=== PATIENT | male | born 1960 | race Hispanic/Latino ===

== ENCOUNTER 2022-02-02 11:23 | Outpatient (CLI) | payer BC ==
[~2022-02-02 11:23] MED LIST: Gadobenate Dimeglumine 529 MG/1 ML (20ML VIAL) ONE
== END 2022-02-02 11:24 | disposition home or self-care (01) ==
LOC: BICMRI 11:23
PROVIDERS: ATTEND Family Medicine
DX: M50.10 Cervical disc disorder with radiculopathy, unspecified cervical region (principal)
CPT/HCPCS: 72156; 82565; A9577

== ENCOUNTER 2022-06-30 12:12 | Outpatient (CLI) | payer OTHER ==
[~2022-06-30 12:12] MED LIST changes: -Gadobenate Dimeglumine 529 MG/1 ML (20ML VIAL) ONE; +Iopamidol 370 76% 100 ML VIAL ONE
== END 2022-06-30 12:13 | disposition home or self-care (01) ==
LOC: CT 12:12
PROVIDERS: ATTEND Family Medicine
DX: R04.2 Hemoptysis (principal); R05.9 Cough, unspecified
CPT/HCPCS: 71260; 82565; Q9967

== ENCOUNTER 2022-07-15 11:59 | Outpatient (CLI) | payer OTHER | END 2022-07-15 12:00 | disposition home or self-care (01) | LOC: CT 11:59 | PROVIDERS: ATTEND Physician Assistant | DX: K86.9 Disease of pancreas, unspecified (principal); K76.0 Fatty (change of) liver, not elsewhere classified; I81 Portal vein thrombosis | CPT/HCPCS: 74178; 82565; Q9967 ==

== ENCOUNTER 2022-10-10 04:16 | Emergency (ER) | payer BC, OTHER ==
[2022-10-10] MEDS ORDERED: Orphenadrine Citrate 60 MG/2 ML VIAL ONE (05:20)
== END 2022-10-10 06:23 | disposition home or self-care (01) ==
LOC: ERS 04:16
DX: M54.41 Lumbago with sciatica, right side (principal); I10 Essential (primary) hypertension
CPT/HCPCS: 96372; 99283; J2360

== ENCOUNTER 2024-06-13 13:22 | Inpatient (IN) | payer BC, SELFPAY ==
[~2024-06-13 13:22] MED LIST changes: -Iopamidol 370 76% 100 ML VIAL ONE; +Iopamidol-370 76% 500 ML MDV (1 ML CHARGE) ONE
[2024-06-13 14:19] LABS: #Basophils 0.05 10x3/uL (0.0-0.2); %Basophils 0.4 % (0.0-1.0); %Eosinophils 1.4 % (0.0-10.0); %Lymphocytes 14.1 % (21.0-51.0); %Monocytes 12.4 % (0.0-10.0); %Neutrophils 71.3 % (42.0-75.0); Hematocrit 45.8 % (42.0-52.0); Hemoglobin 15.4 g/dL (14.0-18.0); Mean Corpuscular HGB CONC 33.6 g/dL (32.0-36.0); Mean Corpuscular Volume 95.2 fL (78.0-98.0); Mean Platelet Volume 10.2 fL (7.4-10.4); Platelet Count 289 10x3/uL (130-400); RBC Distribution Width 12.8 % (11.5-14.5); Red Blood Cell (RBC) Count 4.81 mill/uL (4.70-6.10)
[2024-06-13 14:28] LABS: ALT (SGPT) 149 U/L (8-55); AST (SGOT) 60 U/L (5-34); Albumin 3.9 g/dL (3.4-4.8); Alkaline Phosphatase 104 U/L (40-110); Anion Gap 13 mmol/L (10-20); BUN (Urea Nitrogen) 22 mg/dL (8.4-25.7); Bilirubin, Total 0.5 mg/dL (0.2-1.2); Calc. Creatinine Clearance 0 mL/min (70-130); Calcium 9.1 mg/dL (7.8-10.44); Carbon Dioxide 25 mmol/L (23-31); Chloride 103 mmol/L (98-107); Estimated GFR 101; Globulin 3.9 g/dL (2.4-3.5); Glucose 106 mg/dL (80-115); Lipase 12 U/L (8-78); Potassium 3.6 mmol/L (3.5-5.1); Protein, Total 7.8 g/dL (5.8-8.1); Sodium 137 mmol/L (136-145)
[2024-06-13 14:35] LABS: Troponin I Less than 0.010 ng/mL (< 0.028)
[2024-06-13 15:15] LABS: Bacteria/HPF None Seen HPF (None Seen); Bilirubin Negative (Negative); Blood, Urine Negative (Negative); CAUTI Indications for Culture Pelvic or flank pain; Clarity Clear (Clear); Glucose, Urine (Dipstick) Normal (Negative); Ketone, Urine Trace mg/dL (Negative); Leukocyte Negative Leu/uL (Negative); Nitrite Negative (Negative); Protein, Urine (Dipstick) 20 mg/dL (Neg-Trace); RBC/HPF 0-3 HPF (0-3); Specific Gravity, Urine 1.032 (1.002-1.036); Squamous Epithelial None Seen HPF (0-3); Urobilinogen Normal mg/dL (Less than 2); WBC/HPF 0-3 HPF (0-3); pH, Urine 5.5 (5.0-9.0)
[2024-06-13 15:19] LABS: Urine Culture Reflex No No
[2024-06-13] MEDS ORDERED: Morphine 4 MG/ML VIAL ONE (16:52)
[2024-06-13] MEDS ORDERED: Ondansetron PF 4 MG/2 ML Vial ONE ×3 (16:53→20:47)
[2024-06-13] MEDS ORDERED: Pantoprazole 40 MG VIAL ONE (20:06)
[2024-06-13] MEDS ORDERED: HYDROmorphone 0.5 MG/0.5 ML SYRINGE ONE (20:16)
[2024-06-13 21:13] VITALS: BMI 35.0
[2024-06-13] MEDS: Sodium Chloride 0.9% 1,000 ML IV SCH (21:18)
[2024-06-13] MEDS ORDERED: Acetaminophen 325 MG TAB PO PRN (21:32)
[2024-06-13] MEDS ORDERED: Ondansetron PF 4 MG/2 ML Vial IVP PRN (21:32)
[2024-06-13] MEDS ORDERED: Bisacodyl 5 MG TAB PO PRN (21:39)
[2024-06-13] MEDS ORDERED: Morphine 2 MG/ML VIAL SLOW IVP PRN (21:39)
[2024-06-13] MEDS: Lactated Ringer's 1,000 ML IV SCH (21:49)
[2024-06-13] MEDS: Promethazine HCl 25 MG in Sodium Chloride 0.9% 50 ML IVPB SCH (22:09)
[2024-06-14 05:39] LABS: #Basophils 0.04 10x3/uL (0.0-0.2); %Basophils 0.4 % (0.0-1.0); %Eosinophils 1.6 % (0.0-10.0); %Lymphocytes 20.8 % (21.0-51.0); %Monocytes 12.6 % (0.0-10.0); %Neutrophils 64.3 % (42.0-75.0); Hematocrit 42.6 % (42.0-52.0); Hemoglobin 14.4 g/dL (14.0-18.0); Mean Corpuscular HGB CONC 33.8 g/dL (32.0-36.0); Mean Corpuscular Hemoglobin 32.4 pg (27.0-31.0); Mean Corpuscular Volume 95.7 fL (78.0-98.0); Mean Platelet Volume 10.3 fL (7.4-10.4); Platelet Count 256 10x3/uL (130-400); RBC Distribution Width 12.9 % (11.5-14.5); Red Blood Cell (RBC) Count 4.45 mill/uL (4.70-6.10)
[2024-06-14 05:59] LABS: ALT (SGPT) 146 U/L (8-55); AST (SGOT) 57 U/L (5-34); Albumin 3.3 g/dL (3.4-4.8); Alkaline Phosphatase 88 U/L (40-110); Anion Gap 12 mmol/L (10-20); BUN (Urea Nitrogen) 17 mg/dL (8.4-25.7); Bilirubin, Total 0.5 mg/dL (0.2-1.2); Calc. Creatinine Clearance 140 mL/min (70-130); Calcium 8.6 mg/dL (7.8-10.44); Carbon Dioxide 25 mmol/L (23-31); Chloride 102 mmol/L (98-107); Estimated GFR 103; Globulin 3.4 g/dL (2.4-3.5); Glucose 94 mg/dL (80-115); Potassium 3.5 mmol/L (3.5-5.1); Protein, Total 6.7 g/dL (5.8-8.1); Sodium 135 mmol/L (136-145)
[2024-06-14] MEDS: Pantoprazole 40 MG VIAL IVP SCH (08:37)
[2024-06-14 11:25] VITALS: BMI 35.0
[2024-06-14] MEDS ORDERED: MD-Gastroview 120 ML BOT ONE (12:59)
[2024-06-14] MEDS: Metoprolol Tartrate 25 MG TAB PO SCH (21:08)
[2024-06-15] MEDS: Acetaminophen 325 MG TAB PO PRN (04:21)
[2024-06-15 07:54] VITALS: BP 120/83; TEMP 98.1
[2024-06-15] MEDS: metFORMIN 500 MG TAB PO SCH (08:34)
[2024-06-15] MEDS: Atorvastatin Calcium 40 MG TAB PO SCH (08:34)
== END 2024-06-15 12:20 | disposition home or self-care (01) | DRG 390 ==
LOC: ERS 13:22 → T4-A 20:36 → OBSVTOIN 06-14 17:23
PROVIDERS: ADMIT Student in an Organized Health Care Education/Training Program; ATTEND Internal Medicine
DX: K56.600 Partial intestinal obstruction, unspecified as to cause (principal); E11.9 Type 2 diabetes mellitus without complications; I10 Essential (primary) hypertension; E66.9 Obesity, unspecified; Z68.35 Body mass index [BMI] 35.0-35.9, adult
CPT/HCPCS: 36415; 74019; 74177; 74250; 76705; 80053; 81001; 83690; 84484; 85025; 93005; 96374; 96375; 96376; G0378; J2272; J2405; J2470; J2550; J7030; J7120; Q9963; Q9967

== ENCOUNTER 2025-05-04 13:44 | Outpatient (CLI) | payer OTHER | END 2025-05-04 13:45 | disposition home or self-care (01) | LOC: BICRAD 13:44 | DX: Z02.71 Encounter for disability determination (principal); M54.2 Cervicalgia; M47.812 Spondylosis without myelopathy or radiculopathy, cervical region; M43.16 Spondylolisthesis, lumbar region; M47.816 Spondylosis without myelopathy or radiculopathy, lumbar region; M51.369 Other intervertebral disc degeneration, lumbar region without mention of lumbar back pain or lower extremity pain; M51.379 Other intervertebral disc degeneration, lumbosacral region without mention of lumbar back pain or lower extremity pain | CPT/HCPCS: 72040; 72100 ==